=== PATIENT | female | born 2000 | race Two or more races ===

== ENCOUNTER 2023-10-29 17:24 | Emergency (ER) | payer MEDICAID, OTHER ==
[~2023-10-29] VITALS: Ht 160 cm; Wt 62.6 kg
[2023-10-29 20:18] LABS: BASOPHILS % (AUTO) 0.2 % (0.0-2.0); EOSINOPHILS # (AUTO) 0.2 K/uL (0.0-0.7); EOSINOPHILS % (AUTO) 1.9 % (0.0-6.0); HEMATOCRIT 39 % (33-45); HEMOGLOBIN 13.5 g/dL (11.5-14.8); LYMPHOCYTES # (AUTO) 1.5 K/uL (0.8-4.8); MEAN CORPUSCULAR HEMOGLOBIN 30 PG (26.0-33.0); MEAN CORPUSCULAR HGB CONC 34 g/dl (31.0-36.0); MEAN CORPUSCULAR VOLUME 87 fL (82-100); MONOCYTES # (AUTO) 0.9 K/uL (0.1-1.30); MONOCYTES % (AUTO) 9.4 % (2.0-12.0); NEUTROPHILS # (AUTO) 6.6 K/uL (1.8-8.9); NEUTROPHILS % (AUTO) 72.5 % (43.0-81.0); PLATELET COUNT (AUTO) 295 K/uL (150-450); RED CELL DISTRIBUTION WIDTH 13.7 % (11.5-15.0); WHITE BLOOD COUNT (AUTO) 9.1 K/uL (4.3-11.0)
[2023-10-29 20:26] LABS: CREATININE 0.5 mg/dL (0.6-1.3); POTASSIUM 3.7 mmol/L (3.5-5.1)
[2023-10-29 20:36] LABS: INR 0.95 (0.91-1.10); PROTHROMBIN TIME 10.1 SECS (9.2-11.1)
[2023-10-29 20:38] LABS: ALBUMIN 3.1 g/dL (3.4-5.0); BILIRUBIN,DIRECT 0.1 mg/dL (0.0-0.2); BILIRUBIN,TOTAL 0.5 mg/dL (0.2-1.0); TOTAL PROTEIN, SERUM 7.4 g/dL (6.4-8.2)
[2023-10-29 20:44] LABS: APPEARANCE,URINE SLIGHTLY CLOUDY (CLEAR); BILIRUBIN,URINE NEGATIVE (NEGATIVE); BLOOD, URINE NEGATIVE Ery/uL (NEGATIVE); COLOR,URINE YELLOW (YELLOW); KETONES,URINE 2+ mg/dL (NEGATIVE); LEUKOCYTE ESTERASE ,URINE 3+ (NEGATIVE); NITRITE, URINE NEGATIVE (NEGATIVE); PROTEIN,URINE NEGATIVE (NEGATIVE); UGLUCOSE NEGATIVE (NEGATIVE); UROBILINOGEN,URINE 0.2 EU/dL (0.2)
[2023-10-29 20:45] LABS: PREGNANCY TEST URINE QUAL POSITIVE (NEGATIVE)
[2023-10-29 21:45] LABS: ADD URINE CULTURE YES; BACTERIA,URINE 1+ /HPF (None Seen); WBC,URINE 21-50 /HPF (0-3)
[2023-10-29] MEDS ORDERED: ACETAMINOPHEN ES 500 MG TABLET PO ONE (22:00)
[2023-10-29] MEDS ORDERED: CEPHALEXIN MONOHYDRATE 500 MG CAPSULE PO ONE ×2 (22:00→22:21)
[2023-10-29] MEDS ORDERED: CEPH500C2 PO (22:17)
[2023-10-29] MEDS ORDERED: ACETAMINOPHEN ES 500 MG TABLET ONE (22:21)
[2023-10-29 22:28] VITALS: BP 122/62; TEMP 98.4; O2SAT 100
[2023-10-29 23:38] LABS: RHEUMATOID FACTOR SCREEN NEGATIVE (NEGATIVE)
== END 2023-10-29 22:28 | disposition home or self-care (01) ==
LOC: ER 17:36
DX: O23.42 Unspecified infection of urinary tract in pregnancy, second trimester (principal); N39.0 Urinary tract infection, site not specified; R10.2 Pelvic and perineal pain; J45.909 Unspecified asthma, uncomplicated; Z3A.18 18 weeks gestation of pregnancy; Z20.822 Contact with and (suspected) exposure to COVID-19
CPT/HCPCS: 36415; 76856-TC; 80048-TC; 80076-TC; 81001; 83690-TC; 84702-TC; 84703-TC; 85025-TC; 85730-TC; 86431-TC; 87086-TC

== ENCOUNTER → 2024-04-12 | Emergency (ER) | payer MEDICAID, OTHER ==
[~2024-04-12] VITALS: Ht 162.6 cm; Wt 65.8 kg
[~2024-04-12] MED LIST: CEPH500C2 PO; LACT10SO68 PO; LACTULOSE 10 G/15 ML UDC (PYXIS) ONE; MINERAL OIL 133 ML (PYXIS) 1 EA ENEMA RC ONE
[2024-04-12] MEDS: LACTULOSE 10 G/15 ML UDC (PYXIS) PO ONE (17:30)
[2024-04-12] MEDS: MINERAL OIL 133 ML (PYXIS) 1 EA ENEMA RC ONE (19:13)
[2024-04-12 19:46] VITALS: BP 125/79; TEMP 98.2; O2SAT 100
== END | disposition home or self-care (01) ==
LOC: ER 16:38
DX: O72.2 Delayed and secondary postpartum hemorrhage (principal); K59.00 Constipation, unspecified; K62.89 Other specified diseases of anus and rectum; J45.909 Unspecified asthma, uncomplicated
CPT/HCPCS: 74018